=== PATIENT | female | born 1985 | race Caucasian/White ===

== ENCOUNTER 2019-06-25 15:05 | Day surgery (SDC) | payer MEDICAID ==
[~2019-06-25] VITALS: Ht 172.7 cm; Wt 91.2 kg
[2019-06-25 15:15] VITALS: BP 131/75
--- NOTE | 2019-06-25 15:20 | NUR ---
PT TO ER LOBBY. PT ALERT AND AWAKE
--- NOTE | 2019-06-25 16:30 | NUR ---
PT HAVING HER BLOOD DRAWN IN CHAIR
--- NOTE | 2019-06-25 16:33 | NUR ---
PT AMBULATORY TO BED 7
[2019-06-25 16:49] LABS: BASOPHILS # (AUTO) 0.1 K/uL (0.00-0.22); BASOPHILS % (AUTO) 0.6 % (0.0-2.0); EOSINOPHILS # (AUTO) 0.1 K/uL (0-0.4); EOSINOPHILS % (AUTO) 1.2 % (0.0-4.0); HEMATOCRIT 45.6 % (36-48); HEMOGLOBIN 15.7 g/dL (12.0-16.0); LYMPHOCYTES # (AUTO) 2.2 K/uL (2.5-16.5); LYMPHOCYTES % (AUTO) 17.9 % (20.5-51.1); MEAN CORPUSCULAR HEMOGLOBIN 31 pg (27-31); MEAN CORPUSCULAR HGB CONC 34 g/dL (33-37); MEAN CORPUSCULAR VOLUME 89.5 fL (80-94); MONOCYTES # (AUTO) 0.7 K/uL (0.8-1.0); MONOCYTES % (AUTO) 5.3 % (1.7-9.3); NEUTROPHILS # (AUTO) 9.2 K/uL (1.8-7.7); PLATELET COUNT (AUTO) 319 K/uL (140-450); RED BLOOD CELL COUNT(AUTO) 5.09 MIL/uL (4.20-5.40); RED CELL DISTRIBUTION WIDTH 13.2 % (11.6-13.7); WHITE BLOOD COUNT (AUTO) 12.3 K/uL (4.8-10.8)
--- NOTE | 2019-06-25 17:35 | NUR ---
PATIENT PRESENTS TO ED WITH VAGINAL SPOTTING X 5 DAYS. PT IS HERE TO R/O MISCARRIAGE, SENT BY DR ARCINIEGA OFFICE. PATIENT STATES PAIN OF 0/10 AT THIS TIME; VSS; PATIENT POSITIONED FOR COMFORT; HOB ELEVATED; BEDRAILS UP X2; BED DOWN. ER MD MADE AWARE OF PT STATUS. LMP March [facility]- GALLBLADDER REMOVED 2018
--- NOTE | 2019-06-25 19:06 | NUR ---
REPORT GIVEN TO RADHA SUAREZ. ALL CARE TRANSFERRED.
[2019-06-25 19:29] VITALS: BP 124/75
--- NOTE | 2019-06-25 19:29 | NUR ---
PT ARRIVED AT UNIT VIA GURNEY, PT AMBULATED TO BED, TOLERATED WELL, PT RESTING, NO DISTRESS NOTED, RECEIVED BEDSIDE REPORT FROM DANIELA GARCIA, PT HAS NO IV ACCESS AT THIS MOMENT, MRSA SWAB TAKEN, ORIENT PT TO ROOM, BED, AND CALL LIGHT, PT TOLERATED WELL, NO DISTRESS NOTED, INITIAL ASSESSMENT DONE, ALL SAFETY PRECAUTION MET, CALL LIGHT WITHIN REACH, WILL CONTINUE TO MONITOR.
--- NOTE | 2019-06-25 19:54 | NUR ---
Patient will be admitted to [facility]. Admited to [facility]. Will go to room 125B. Belongings list completed. Report to STORMY GARCIA.
--- NOTE | 2019-06-25 20:20 | NUR ---
NEW IV INSERTED TO L FA 22 G PATENT INTACT. PT TOLERATED WELL, CALL LIGHT WITHIN REACH, WILL CONTINUE TO MONITOR.
[2019-06-25] MEDS ORDERED: fentaNYL 0.05 MG/ML VIAL ONE (20:30)
[2019-06-25] MEDS ORDERED: MIDAZOLAM 2 MG/2 ML VIAL ONE (20:30)
[2019-06-25] MEDS ORDERED: DEXAMETHASONE 4 MG/ML VIAL ONE (20:35)
[2019-06-25] MEDS ORDERED: ONDANSETRON 4 MG/2 ML VIAL ONE (20:35)
[2019-06-25] MEDS ORDERED: PROPOFOL 200 MG/20 ML VIAL IV ONE (20:35)
[2019-06-25] MEDS ORDERED: diphenhydrAMINE 50 MG/ML VIAL IVP PRN (20:45)
[2019-06-25] MEDS ORDERED: LACTATED RINGERS 1,000 ML IV SCH (20:45)
[2019-06-25] MEDS ORDERED: HYDROmorphone 1 MG/ML AMP IVP PRN (20:45)
[2019-06-25] MEDS ORDERED: MEPERIDINE 25 MG/ML SYR IVP PRN (20:45)
[2019-06-25] MEDS ORDERED: ONDANSETRON 4 MG/2 ML VIAL IVP PRN (20:45)
--- NOTE | 2019-06-25 20:45 | NUR ---
PT TRANSPORTED TO OR FOR SURGERY BY OR STAFF.
[2019-06-25] MEDS ORDERED: KETOROLAC 30 MG/ML VIAL IVP ONE (22:15)
--- NOTE | 2019-06-25 22:30 | NUR ---
PT CAME BACK FROM OR, STABLE, NO DISTRESS NOTED, V/S WNL, NO PAIN STATED. WILL CONTINUE TO MONITOR.
--- NOTE | 2019-06-25 22:45 | NUR ---
CALLED DR. ARCINIEGA REGARDING PT DIET AND PT DISCHARGE, PER DR. PT OK TO DISCHARGE WHEN PT IS READY.
--- NOTE | 2019-06-25 23:42 | NUR ---
PT AMBULATED TO RESTROOM AND URINATE, WENT BACK TO BED, TOLERATED WELL, NO DISTRESS NOTED, CALL LIGHT WITHIN REACH, WILL CONTINUE TO MONITOR.
[2019-06-26] VITALS: BP 100/62
--- NOTE | 2019-06-26 00:24 | NUR ---
DISCHARGE PAPER SIGNED ALL DISCHARGE INSTRUCTION EXPLAINED, PT STATED UNDERSTANDING, IV TAKEN OUT, CATH INTACT, ALL WRISTBANDS TAKEN OFF. PT IS CHANGING WITH AT BEDSIDE, CALL LIGHT WITHIN REACH, WILL CONTINUE TO MONITOR.
--- NOTE | 2019-06-26 00:51 | NUR ---
PT LEFT UNIT IN STABLE CONDITION, D/C TO HOME ACCOMPANIED WITH .
== END 2019-06-26 00:51 | disposition home or self-care (01) ==
LOC: MED 15:05 → MOR 19:01 → UNDOADMIN 19:01 → MMU 19:01 → MOR 06-26 00:51
PROVIDERS: ATTEND Obstetrics & Gynecology
DX: O02.1 Missed abortion (principal); O99.214 Obesity complicating childbirth; E66.9 Obesity, unspecified; Z90.49 Acquired absence of other specified parts of digestive tract; Z3A.01 Less than 8 weeks gestation of pregnancy
CPT/HCPCS: 36415; 59820; 76801; 84702; 85025; 86886; 86900; 86901; J1100; J2250; J2405; J2704; J3010; J7030; 88305